=== PATIENT | male | born 1955 | race Two or more races ===

== ENCOUNTER 2020-01-07 15:40 | Emergency (ER) | payer MEDICARE, MEDICAID ==
[~2020-01-07] VITALS: Ht 170.2 cm; Wt 90.7 kg
[~2020-01-07 15:40] MED LIST: [UNRECOGNIZED DRUG - REMARK]
--- NOTE | 2020-01-07 16:30 | NUR ---
patient came in to the er c/o foreign body needble left buttocks. On room air, breathing evenly and unlabored. kept comfortable, will continue to monitor accoridngly.
[2020-01-07 18:01] VITALS: BP 139/89
--- NOTE | 2020-01-07 18:01 | NUR ---
Patient discharged to home in stable condition. Written and verbal after care instructions given. Patient verbalizes understanding of instruction.
== END 2020-01-07 18:01 | disposition home or self-care (01) ==
LOC: ER 16:09
DX: S30.850A Superficial foreign body of lower back and pelvis, initial encounter (principal); I10 Essential (primary) hypertension; Z85.51 Personal history of malignant neoplasm of bladder; Z88.6 Allergy status to analgesic agent; Z98.890 Other specified postprocedural states; W45.8XXA Other foreign body or object entering through skin, initial encounter; Y93.89 Activity, other specified; Y92.89 Other specified places as the place of occurrence of the external cause; Y99.8 Other external cause status
CPT/HCPCS: 73502

== ENCOUNTER 2024-08-30 17:28 | Emergency (ER) | payer MEDICARE, OTHER ==
[~2024-08-30] VITALS: Ht 170.2 cm; Wt 89.4 kg
[2024-08-30] MEDS ORDERED: CEPH-570 PO (18:49)
[2024-08-30] MEDS ORDERED: SULF1TAB48 PO (18:49)
[2024-08-30] MEDS ORDERED: MUPI15CR TP (18:49)
[2024-08-30 19:34] VITALS: BP 140/80; TEMP 98.3; O2SAT 99
== END 2024-08-30 19:34 | disposition home or self-care (01) ==
LOC: ER 17:34
DX: L03.312 Cellulitis of back [any part except buttock and flank] (principal); I10 Essential (primary) hypertension

== ENCOUNTER 2025-01-06 07:48 | Emergency (ER) | payer MEDICARE, OTHER ==
[~2025-01-06] VITALS: Ht 170.2 cm; Wt 83.9 kg
[~2025-01-06 07:48] MED LIST changes: +CEPH-570 PO; +MUPI15CR TP; +SULF1TAB48 PO
[2025-01-06 07:59] VITALS: BP 130/69; TEMP 98.2; O2SAT 96
== END 2025-01-06 08:20 | disposition home or self-care (01) ==
LOC: ER 07:51
DX: M79.642 Pain in left hand (principal); I10 Essential (primary) hypertension; Z79.899 Other long term (current) drug therapy; Z88.5 Allergy status to narcotic agent; Z85.9 Personal history of malignant neoplasm, unspecified; Z98.890 Other specified postprocedural states